=== PATIENT | female | born 1985 | race Caucasian/White ===

== ENCOUNTER 2016-08-08 19:46 | Emergency (ER) | payer OTHER ==
[~2016-08-08] VITALS: Ht 167.6 cm; Wt 166.5 kg
[~2016-08-08 19:46] MED LIST: ALPR1TAB2; CEPH-443 PO; CIPR500T4 PO; CYCL-319 PO; HYDR-3498 PO; HYDR-906 PO; IBUP800T25 PO; NITR-58 PO; ONDA4TAB8 PO; ZOLP10TA
[2016-08-08 19:49] VITALS: Ht 167.6 cm; Wt 166.5 kg
[2016-08-08] MEDS ORDERED: IBUP-1542 PO (20:08)
[2016-08-08] MEDS ORDERED: SSD1C20 TOP (20:08)
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
== END 2016-08-08 20:14 | disposition home or self-care (01) ==
LOC: E/R 19:46
DX: T21.22XA Burn of second degree of abdominal wall, initial encounter (principal); X11.8XXA Contact with other hot tap-water, initial encounter; Y92.9 Unspecified place or not applicable
CPT/HCPCS: 99283

== ENCOUNTER 2017-05-24 22:23 | Emergency (ER) | END 2017-05-25 04:03 | disposition home or self-care (01) ==

== ENCOUNTER 2017-07-04 07:59 | Emergency (ER) | END 2017-07-04 11:10 | disposition home or self-care (01) ==

== ENCOUNTER 2017-07-08 00:08 | Emergency (ER) | END 2017-07-08 05:58 | disposition home or self-care (01) ==

== ENCOUNTER 2017-11-07 02:44 | Emergency (ER) | END 2017-11-07 04:17 | disposition home or self-care (01) ==

== ENCOUNTER 2018-06-29 19:45 | Emergency (ER) | payer OTHER ==
[~2018-06-29] VITALS: Ht 175.3 cm; Wt 156.5 kg
[~2018-06-29 19:45] MED LIST changes: +ALBU8.5H8 INH; +ALPR1TAB2 PO; +AMOX500C2 PO; +AZIT250T PO; +BENZ-6 PO; +CETI10CA PO; -CYCL-319 PO; +CYCL10TA7 PO; +FIORICET PO; +GUAI473L22 PO; +HYDR-4011 PO; -HYDR-906 PO; +IBUP-1542 PO; -IBUP800T25 PO; +IBUP800T48 PO; +MAG-19 PO; +METO10TA92 PO; +ONDA4TAB14 PO; +RANI150T35 PO; +SSD1C20 TOP
[2018-06-29 20:08] VITALS: BP 116/65; PULSE 103; RESP 20; Ht 175.3 cm; Wt 156.5 kg
[2018-06-29] MEDS ORDERED: FLUT9.9S NASAL (22:55)
[2018-06-29] MEDS ORDERED: LORA-186 PO (22:55)
[2018-06-29] MEDS ORDERED: HYDR25CA PO (22:55)
--- NOTE | 2018-06-29 22:58 | ERD ---
ER Documentation Chief Complaint Chief Complaint fever/chills/cough/CWP/back pain/vomiting x6 days HPI This is a 33-year-old female patient presents emergency room with cough that was worsened at night. States her unproductive cough has worsened over the last 6 days, subjective fevers, no nausea vomiting or abdominal pain. No dysuria. no wheezing, no shortness of breath, no chest pain. + Itchy watery eyes. Patient is a non-smoker. Patient also states she has PTSD and has been experiencing more anxiety lately. Patient is not suicidal. ROS All systems reviewed and are negative except as per history of present illness. Medications Home Meds Active Scripts Hydroxyzine Pamoate* (Vistaril*) 25 Mg Capsule, 25 MG PO BID PRN for ANXIETY for 14 Days, #20 CAP Prov:CLARI CANO NP 06/29/18 Loratadine* (Claritin*) 10 Mg Tablet, 10 MG PO DAILY for 30 Days, #30 TAB Prov:CLARI CANO NP 06/29/18 Fluticasone Propionate (Flonase Allergy Relief) 9.9 Ml [place].susp, 1 SPRAY NASAL BID, #1 BOTTLE TO EACH NOSTRIL Prov:CLARI CANO NP 06/29/18 Ibuprofen* (Ibuprofen*) 600 Mg Tablet, 600 MG PO Q6H PRN for PAIN, #30 TAB Prov:TABITHA RAMIREZ DO 01/27/18 Amoxicillin* (Amoxicillin*) 500 Mg Cap, 500 MG PO TID for 10 Days, CAP Prov:CIELO DUPREE NP 11/07/17 Ibuprofen* (Motrin*) 600 Mg Tab, 600 MG PO Q6H PRN for PAIN AND OR ELEVATED TEMP, #30 TAB Prov:CIELO DUPREE NP 11/07/17 Cetirizine Hcl* (Zyrtec*) 10 Mg Capsule, 10 MG PO DAILY, #30 TAB.CHEW Prov:CIELO DUPREE NP 11/07/17 Benzonatate* (Tessalon Perle*) 100 Mg Capsule, 100 MG PO Q8H PRN for COUGH, #20 CAP Prov:CIELO DUPREE NP 11/07/17 Alprazolam* (Xanax*) 1 Mg Tab, 1 MG PO Q8H PRN for ANXIETY, #5 TAB Prov:CIELO DUPREE NP 11/07/17 Ciprofloxacin Hcl* (Ciprofloxacin Hcl*) 500 Mg Tablet, 500 MG PO BID for 7 Days, TAB Prov:CIELO DUPREE NP 07/08/17 Metoclopramide* (Reglan*) 10 Mg Tablet, 10 MG PO Q6 PRN for NAUSEA AND/OR VOMITING, #10 TAB Prov:CIELO DUPREE NP 07/08/17 Ranitidine Hcl* (Zantac*) 150 Mg Tablet, 150 MG PO BID PRN for EPIGASTRIC PAIN, #30 TAB Prov:CIELO DUPREE NP 07/08/17 Magaldrate/Simethicone* (Mylanta*) 355 Ml Susp, 30 ML PO QID PRN for GASTROINTESTINAL UPSET, #1 BOTTLE Prov:CIELO DUPREE NP 07/08/17 Ondansetron (Ondansetron Odt) 4 Mg Tab.rapdis, 4 MG PO Q6H PRN for NAUSEA AND/OR VOMITING, #10 TAB Prov:DARYN CONNELL PA-C 07/04/17 Cephalexin* (Keflex*) 500 Mg Capsule, 500 MG PO QID for 7 Days, CAP Prov:DARYN CONNELL PA-C 07/04/17 Acetamin/Butalbital/Caffeine* (Fioricet*) [id number] Tab, 1 TAB PO Q6H PRN for PAIN, #30 TAB Prov:DARYN CONNELL PA-C 07/04/17 Albuterol Sulfate* (Proair HFA*) 8.5 Gm Hfa.aer.ad, 2 PUFF INH Q4H PRN for WHEEZING AND SOB, #1 INHALER Prov:CIELO DUPREE NP 05/25/17 Ibuprofen* (Motrin*) 600 Mg Tab, 600 MG PO Q6H PRN for PAIN AND OR ELEVATED TE MP, #30 TAB Prov:CIELO DUPREE NP 05/25/17 Cetirizine Hcl* (Zyrtec*) 10 Mg Capsule, 10 MG PO DAILY, #30 TAB.CHEW Prov:CIELO DUPREE NP 05/25/17 Guaifenesin-Codeine Phosphate* (Guaifenesin* AC Cough Syrup) 473 Ml Liquid, 10 ML PO Q4H PRN for COUGH, #120 ML Prov:CIELO DUPREE NP 05/25/17 Azithromycin* (Zithromax*) 250 Mg Tablet, 250 MG PO .ZPACK DIRECTED, #6 TAB TAKE 500 MG (2 TABS) THE FIRST DAY THEN 250 MG (1 TAB) DAYS 2-5 Prov:CIELO DUPREE NP 05/25/17 Ibuprofen* (Motrin*) 600 Mg Tab, 600 MG PO Q6H PRN for PAIN AND OR ELEVATED TEMP, #30 TAB Prov:CIELO DUPREE NP 08/08/16 Silver Sulfadiazine (THERMAZENE 1% 25 GM) 1 Applic Cr, 1 APPLIC TOP BID, #1 TUB Prov:CIELO DUPREE NP 08/08/16 Ondansetron Hcl* (Zofran*) 4 Mg Tablet, 4 MG PO Q6H for NAUSEA AND/OR VOMITING, #30 TAB Prov:MANN VALDEZ PA-C 02/03/16 Hydrocodone/Acetaminophen ([place] 5-325 Tablet) 1 Each Tablet, 1 TAB PO Q6H PRN for PAIN, #5 TAB Prov:MANN VALDEZ PA-C 02/03/16 Ciprofloxacin Hcl* (Ciprofloxacin Hcl*) 500 Mg Tablet, 500 MG PO BID for 3 Days, TAB Prov:MANN VALDEZ PA-C 02/03/16 Hydrocodone Bit-Acetaminophen* ([place]*) 5-325 Mg Tab, 1 TAB PO Q6 PRN for PAIN, #20 TAB Prov:CIELO DUPREE NP 10/28/14 Cephalexin* (Keflex*) 500 Mg Capsule, 500 MG PO QID for 7 Days, CAP Prov:CIELO DUPREE NP 10/28/14 Cyclobenzaprine Hcl* (Cyclobenzaprine Hcl*) 10 Mg Tablet, 5 MG PO TID, #20 TAB Prov:CIELO DUPREE NP 10/28/14 Ibuprofen* (Motrin*) 800 Mg Tab, 800 MG PO Q6H PRN for PAIN AND OR ELEVATED TEMP, #30 TAB Prov:THOMAS MOHAMUD. MASONRY INSPECTOR 10/24/14 Nitrofurantoin Monohyd Macrocr* (Macrobid*) 100 Mg Capsr, 100 MG PO BID for 7 Days, CAP Prov:THOMAS MOHAMUD. MASONRY INSPECTOR 10/24/14 Reported Medications Alprazolam* (Xanax*) 1 Mg Tab, PRN 03/31/13 Zolpidem Tartrate* (Ambien*) 10 Mg Tablet, QHS 03/31/13 [None] No Conflict Check 08/17/10 Allergies Allergies: Coded Allergies: moxifloxacin (Verified Adverse Reaction, Mild, 01/27/18) PMhx/Soc History of Surgery: Yes (cholecystectomy, tubal ligation) Anesthesia Reaction: No Hx Neurological Disorder: No Hx Respiratory Disorders: No Hx Cardiac Disorders: No Hx Psychiatric Problems: Yes (bipolar) Hx Miscellaneous Medical Probl: Yes (anxiety depression) Hx Alcohol Use: No Hx Substance Use: No Hx Tobacco Use: No Smoking Status: Never smoker FmHx Family History: No diabetes, No coronary disease, No other Physical Exam Vitals Vital Signs Date Temp Pulse Resp B/P (MAP) Pulse Ox O2 O2 Flow FiO2 Time Delivery Rate 06/29/18 99.7 103 20 116/65 98 20:08 (82) Physical Exam Const: No acute distress Head: Atraumatic Eyes: Normal Conjunctiva ENT: Normal External Ears, Nose and Mouth. Pharynx pink, no lesions or exudate. Neck: Full range of motion. No meningismus. No adenopathy no thyromegaly Resp: Clear to auscultation bilaterally no wheezing, no rales, no rhonchi Cardio: Regular rate and rhythm, no murmurs Abd: Soft, non tender, non distended. Normal bowel sounds Skin: No petechiae or rashes Back: No midline or flank tenderness Ext: No cyanosis, or edema Neur: Awake and alert Psych: Normal Mood and Affect Procedures/MDM This is a 33-year-old female patient who presents emergency room with complaint of cough x6 days. DIAGNOSTIC IMAGING: Not indicated PROCEDURES: None. MEDICATIONS GIVEN: None indicated MDM: At the time of discharge, vital signs stable, no respiratory distress. Differential diagnosis include but not limited to: Respiratory infection bacterial/viral/fungal. Influenza, pharyngitis, gastroenteritis, asthma, croup, bronchiolitis, allergies, GERD. Less likely foreign body aspiration, pneumonia . Physical examination and clinical presentation consistent most likely with viral syndrome. During the ED course the patient remained stable. Clinical impression discussed with the patient who agrees with management. The patient is stable to be treated outpatient and will be discharged home. Antibiotics not indicated at this time. f symptoms persist, worsen or new symptoms develop, then patient should return to the ED immediately. Disclaimer: Inadvertent spelling and grammatical errors are likely due to EHR/dictation software use and do not reflect on the overall quality of patient care. Also, please note that the electronic time recorded on this note does not necessarily reflect the actual time of the patient encounter. DISPOSITION: The patient has been discharge home to follow-up with community physician. Departure Diagnosis: Primary Impression: Allergic rhinitis Additional Impression: Cough Condition: Stable Patient Instructions: Cough, Chronic, Uncertain Cause, (Adult), Allergic Rhinitis Additional Instructions: Thank you very much for allowing us to participate in your care. Your health and safety is our top priority at [facility]. Call your primary care doctor TOMORROW for an appointment during the next 2-4 days and bring all the information and medications prescribed. Have prescriptions filled and follow precisely the directions on the label. If the symptoms get worse and your provider is unavailable, return to the Emergency Department immediately. Take Vistaril at night to help with sleep. Do not take while operating the ve hicle, do not take with alcohol. This medication may make you drowsy. Take Flonase 1 spray each nostril twice a day, take Claritin daily. Increase hydration to 1 to 2 L/day. CLARI CANO NP June 29, 2018 22:58
== END 2018-06-29 23:01 | disposition home or self-care (01) ==
LOC: FTE 19:45
DX: J30.9 Allergic rhinitis, unspecified (principal)
CPT/HCPCS: 99283

== ENCOUNTER 2018-08-18 10:57 | Emergency (ER) | payer MEDICAID, OTHER ==
[~2018-08-18] VITALS: Ht 167.6 cm; Wt 120.0 kg
[2018-08-18 10:57] VITALS: Ht 167.6 cm; Wt 120.0 kg
[~2018-08-18 10:57] MED LIST changes: +FLUT9.9S NASAL; +HYDR25CA PO; +LORA-186 PO
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
--- NOTE | 2018-08-18 13:52 | PSY ---
Date/Time of Note Date/Time of Note DATE: 08/18/18 TIME: 15:42 Psychiatric Subjective Eval Consent Pt consented to telemedicine: Yes Subjective Evaluation Patient location: emergency Chief Complaint: BIB . INTENTIONAL OD ON XANAX APPROX 70-80 1 MG TABS History of present illness HPI: 33 yo female with ho anxiety and depression, reports that her PTSD was triggered so she took a bottle of xanax. Reports she "cannot control" her PTSD and does not have outpatient treatment. Says she is "not sure" whether or not she was trying to kill herself. pt denies being on medication or seeing a therapist. Denies drug use or psychosis Past psych Hx: denies ho psych admits or suicide attempts PMHx: denies Meds: denies Allergies: moxifloxacin MSE: casually groomed, somewhat uncooperatie, dysthymic, restricted affect, decreased prosody of speech, denies avh or delusions or si/hi, impaired insight/reliability Imp: 33 yo female s/p intentional and severe overdose voluntary psych admit benzodiazepine w/d precautions with bridget d/w attending Medical history Problems Medical Problems: (1) Acute bacterial pharyngitis Status: Acute (2) Acute bronchitis Status: Acute (3) Acute bronchitis Status: Acute (4) Allergic rhinitis Status: Acute (5) Back pain Status: Acute (6) Cough Status: Acute (7) Dependent edema Status: Acute (8) GERD (gastroesophageal reflux disease) Status: Acute (9) Headache Status: Acute (10) Intentional drug overdose Status: Acute (11) Medication refill Status: Acute (12) Ovarian cyst Status: Acute (13) Second degree burn Status: Acute (14) Suprapubic pain Status: Acute (15) UTI (urinary tract infection) Status: Acute (16) Vomiting Status: Acute Allergies: Coded Allergies: moxifloxacin (Verified Adverse Reaction, Mild, 08/18/18) Psychiatric Objective Eval Mental Status Examination: Laboratory Results Laboratory Tests Test 08/18/18 11:20 08/18/18 11:21 Urine Color COLORLESS Urine Clarity CLEAR Urine pH 6.0 Urine Specific [place] 1.001 Urine Ketones NEGATIVE mg/dL Urine Nitrite NEGATIVE mg/dL Urine Bilirubin NEGATIVE mg/dL Urine Urobilinogen NEGATIVE mg/dL Urine Leukocyte Esterase NEGATIVE Dex/ul Urine Microscopic RBC 0 /HPF Urine Microscopic WBC 0 /HPF Urine Bacteria FEW /HPF Urine Hemoglobin 1+ mg/dL Urine Glucose NEGATIVE mg/dL Urine Total Protein NEGATIVE mg/dl Urine Opiates Screen Negative Urine Barbiturates Negative Urine Amphetamines Screen Positive Urine Benzodiazepines Screen Positive Urine Cocaine Screen Negative Urine Cannabinoids Negative White Blood Count 10.7 10^3/ul Red Blood Count 4.56 10^6/ul Hemoglobin 12.8 g/dl Hematocrit 39.1 % Mean Corpuscular Volume 85.7 fl Mean Corpuscular Hemoglobin 28.1 pg Mean Corpuscular Hemoglobin Concent 32.7 g/dl Red Cell Distribution Width 14.1 % Platelet Count 241 10^3/UL Mean Platelet Volume 10.5 fl Immature Granulocytes % 0.400 % Neutrophils % 66.9 % Lymphocytes % 24.8 % Monocytes % 5.8 % Eosinophils % 1.9 % Basophils % 0.2 % Nucleated Red Blood Cells % 0.0 /100WBC Immature Granulocytes # 0.040 10^3/ul Neutrophils # 7.2 10^3/ul Lymphocytes # 2.7 10^3/ul Monocytes # 0.6 10^3/ul Eosinophils # 0.2 10^3/ul Basophils # 0.0 10^3/ul Nucleated Red Blood Cells # 0.0 10^3/ul Sodium Level 142 mmol/L Potassium Level 3.7 mmol/L Chloride Level 109 mmol/L Carbon Dioxide Level 23 mmol/L Anion Gap 10 Blood Urea Nitrogen 11 mg/dl Creatinine 0.54 mg/dl Est Glomerular Filtrat Rate mL/min > 60 mL/min Glucose Level 109 mg/dl Calcium Level 8.5 mg/dl Total Bilirubin 0.4 mg/dl Direct Bilirubin 0.00 mg/dl Indirect Bilirubin 0.4 mg/dl Aspartate Amino Transf (AST/SGOT) 20 IU/L Alanine Aminotransferase (ALT/SGPT) 19 IU/L Alkaline Phosphatase 91 IU/L Total Protein 7.2 g/dl Albumin 3.7 g/dl Globulin 3.50 g/dl Albumin/Globulin Ratio 1.05 Salicylates Level < 1.0 mg/dl Acetaminophen Level < 10.0 ug/ml Ethyl Alcohol Level < 10.0 mg/dl Assessment and Plan Recommendation/Plan Multiple antipsychotics: No Discharge Disposition: Psychiatric inpatient Legal Status: Voluntary SRIRAM RIBEIRO Aug 18, 2018 13:52
[2018-08-18] MEDS ORDERED: DIPHENHYDRAMINE 50 MG INJ ONE (20:40)
[2018-08-18] MEDS ORDERED: DIPHENHYDRAMINE 50 MG INJ IV ONE (21:00)
--- NOTE | 2018-08-18 23:40 | PSY ---
Date/Time of Note Date/Time of Note DATE: 08/18/18 TIME: 23:24 Psychiatric Subjective Eval Consent Pt consented to telemedicine: Yes Subjective Evaluation Patient location: emergency Chief Complaint: BIB . INTENTIONAL OD ON XANAX APPROX 70-80 1 MG TABS Reason for consult: Patient seen earlier and recommended for voluntary admit by Dr. Teran History of present illness Per chart the patient overdosed on a large number of Xanax and was recommended for inpatient admission by Dr. Teran. She was apparently accepted at a psychiatric hospital. She then said she wanted to go home. She told me she just "had a moment." She said she had "no reason honestly" for taking all the Xanax. She stated she had some medication changes recently including a medication that was stopped "cold turkey" which. Later she said she had a "really big trigger" which caused her to take the Xanax. She stated she has felt "really out of control" lately. I explained that the large number of Xanax could have been deadly, and she said, "I know." Past psychiatric history Diagnosed with PTSD. Stated she was taking Ambien and Xanax and something else she doesn't remember. Hospitalization: no Family History She always thought there was some mental health issues on her mom's side. Medical history Problems Medical Problems: (1) Acute bacterial pharyngitis Status: Acute (2) Acute bronchitis Status: Acute (3) Acute bronchitis Status: Acute (4) Allergic rhinitis Status: Acute (5) Back pain Status: Acute (6) Cough Status: Acute (7) Dependent edema Status: Acute (8) GERD (gastroesophageal reflux disease) Status: Acute (9) Headache Status: Acute (10) Intentional drug overdose Status: Acute (11) Medication refill Status: Acute (12) Ovarian cyst Status: Acute (13) Second degree burn Status: Acute (14) Suprapubic pain Status: Acute (15) UTI (urinary tract infection) Status: Acute (16) Vomiting Status: Acute Allergies: Coded Allergies: moxifloxacin (Verified Adverse Reaction, Mild, 08/18/18) Substance Abuse Substance use: No known substance abuse Substance abuse history: No Prior substance abuse treatmen: No Social History Marital status: DPA/Conservatorship: No Psychiatric Objective Eval Mental Status Examination: Appearance: Groomed Eye Contact: Fair Psychomotor Activity: Normal Behavior: Guarded Speech: Dysarthric AFFECT: Constricted Mood: Anxious Though Process: Circumstantial Thought Content: Normal Suicidal: No Homicidal: No On 72 hour hold: No Orientation: x3 Cognition: Drowsy Insight: Impared Judgement: Impared Attention Span: Intact Laboratory Results Laboratory Tests Test 08/18/18 11:20 08/18/18 11:21 08/18/18 16:08 Urine Color COLORLESS Urine Clarity CLEAR Urine pH 6.0 Urine Specific [place] 1.001 Urine Ketones NEGATIVE mg/dL Urine Nitrite NEGATIVE mg/dL Urine Bilirubin NEGATIVE mg/dL Urine Urobilinogen NEGATIVE mg/dL Urine Leukocyte Esterase NEGATIVE Dex/ul Urine Microscopic RBC 0 /HPF Urine Microscopic WBC 0 /HPF Urine Bacteria FEW /HPF Urine Hemoglobin 1+ mg/dL Urine Glucose NEGATIVE mg/dL Urine Total Protein NEGATIVE mg/dl Urine Opiates Screen Negative Urine Barbiturates Negative Urine Amphetamines Screen Positive Urine Benzodiazepines Screen Positive Urine Cocaine Screen Negative Urine Cannabinoids Negative White Blood Count 10.7 10^3/ul Red Blood Count 4.56 10^6/ul Hemoglobin 12.8 g/dl Hematocrit 39.1 % Mean Corpuscular Volume 85.7 fl Mean Corpuscular Hemoglobin 28.1 pg Mean Corpuscular 32.7 g/dl Hemoglobin Concent Red Cell Distribution Width 14.1 % Platelet Count 241 10^3/UL Mean Platelet Volume 10.5 fl Immature Granulocytes % 0.400 % Neutrophils % 66.9 % Lymphocytes % 24.8 % Monocytes % 5.8 % Eosinophils % 1.9 % Basophils % 0.2 % Nucleated Red Blood Cells % 0.0 /100WBC Immature Granulocytes # 0.040 10^3/ul Neutrophils # 7.2 10^3/ul Lymphocytes # 2.7 10^3/ul Monocytes # 0.6 10^3/ul Eosinophils # 0.2 10^3/ul Basophils # 0.0 10^3/ul Nucleated Red Blood Cells # 0.0 10^3/ul Sodium Level 142 mmol/L Potassium Level 3.7 mmol/L Chloride Level 109 mmol/L Carbon Dioxide Level 23 mmol/L Anion Gap 10 Blood Urea Nitrogen 11 mg/dl Creatinine 0.54 mg/dl Est Glomerular Filtrat > 60 mL/min Rate mL/min Glucose Level 109 mg/dl Calcium Level 8.5 mg/dl Total Bilirubin 0.4 mg/dl Direct Bilirubin 0.00 mg/dl Indirect Bilirubin 0.4 mg/dl Aspartate Amino Transf (AST/SGOT) 20 IU/L Alanine 19 IU/L Aminotransferase (ALT/SGPT) Alkaline Phosphatase 91 IU/L Total Protein 7.2 g/dl Albumin 3.7 g/dl Globulin 3.50 g/dl Albumin/Globulin Ratio 1.05 Salicylates Level < 1.0 mg/dl Acetaminophen Level < 10.0 ug/ml Ethyl Alcohol Level < 10.0 mg/dl POC Beta HCG, Qualitative NEGATIVE Assessment and Plan Assessment/Diagnosis Diagnosis PTSD Recommendation/Plan Multiple antipsychotics: No Pt. Caregiver/Family Education Explained rationale for admission Discharge Disposition: Psychiatric inpatient Legal Status: Place involuntary hold Other Although she denied suicidal thoughts currently she cannot give a rational e xplanation for taking such a large amount of Xanax which could have caused serious medical complications or . This suggests she does meet criteria for a 5150 DTS hold which is recommended. GERONIMO HAYWARD MD Aug 18, 2018 23:35
--- NOTE | 2018-08-19 11:43 | EN ---
Date/Time of Note Date/Time of Note DATE: 08/19/18 TIME: 11:42 ER Progress Note No acute events overnight. Patient remains suicidal and high risk from a psychiatric standpoint. She has not been agitated and has no medical complaints. Physical exam: Vital signs appreciated Psychiatrically essentially unchanged. She is awake alert oriented expressing suicidal ideation having just overdose. Assessment: Patient has been evaluated by the psychiatric evaluation team and placed on a 5150 Plan: Patient remains medically clear and pending placement for psychiatric bed. HAZEL LAGUNA Aug 19, 2018 11:43
[2018-08-19] MEDS ORDERED: DIPHENHYDRAMINE 25 MG CAP PO ONE (22:30)
[2018-08-20 03:29] VITALS: BP 128/74; PULSE 76; RESP 18
== END 2018-08-20 03:36 ==
LOC: E/R 10:57
DX: T42.4X2A Poisoning by benzodiazepines, intentional self-harm, initial encounter (principal)
CPT/HCPCS: 36415; 80053; 80307; 81001; 81025; 85025; J1200; Z7502; Z7610

== ENCOUNTER 2018-09-01 18:54 | Emergency (ER) | payer MEDICAID ==
[~2018-09-01] VITALS: Ht 175.3 cm; Wt 153.4 kg
[2018-09-01 19:06] VITALS: Ht 175.3 cm; Wt 153.4 kg
[2018-09-01] MEDS ORDERED: LORAZEPAM 1 MG TAB PO ONE (20:00)
[2018-09-01] MEDS ORDERED: ACETAMINOPHEN 325 MG TAB PO ONE (20:00)
[2018-09-01] MEDS ORDERED: IBUP-1542 PO (21:21)
[2018-09-01] MEDS ORDERED: CYCL10TA7 PO (21:21)
[2018-09-01] MEDS ORDERED: LORA1TAB PO (21:21)
--- NOTE | 2018-09-01 21:24 | ERD ---
ER Documentation Chief Complaint Chief Complaint Pt reports L arm numbness since 0100 this morning HPI 33-year-old female presents with left arm pain and numbness since earlier this morning when trying to sleep. Radiates from her left neck. She denies any weakness. She complains of mild headache double vision as well although he has a history of anxiety and believes her anxiety has been worse with the left arm pain. She denies any chest pain, shortness of breath, fevers. She denies any previous neck injury. ROS All systems reviewed and are negative except as per history of present illness. Medications Home Meds Active Scripts Cyclobenzaprine Hcl* (Cyclobenzaprine Hcl*) 10 Mg Tablet, 10 MG PO TID, #20 TAB Prov:TRUDY POSADA MD 09/01/18 Ibuprofen* (Motrin*) 600 Mg Tab, 600 MG PO Q6, #20 TAB Prov:TRUDY POSADA MD 09/01/18 Lorazepam* (Lorazepam*) 1 Mg Tablet, 1 MG PO Q6 PRN for ANXIETY, #12 TAB Prov:TRUDY POSADA MD 09/01/18 Allergies Allergies: Coded Allergies: moxifloxacin (Verified Adverse Reaction, Mild, 08/18/18) PMhx/Soc Medical and Surgical Hx: pt denies Medical Hx History of Surgery: Yes (tubal ligation, cholecystectomy) Anesthesia Reaction: No Hx Neurological Disorder: No Hx Respiratory Disorders: No Hx Cardiac Disorders: No Hx Psychiatric Problems: Yes (bipolar, PTSD) Hx Miscellaneous Medical Probl: Yes (anxiety depression) Hx Alcohol Use: No Hx Substance Use: No Hx Tobacco Use: No Smoking Status: Never smoker FmHx Family History: No diabetes, No coronary disease, No other Physical Exam Vitals Vital Signs Date Temp Pulse Resp B/P (MAP) Pulse Ox O2 O2 Flow FiO2 Time Delivery Rate 09/01/18 99.4 114 24 120/65 99 19:06 (83) Physical Exam Const: No acute distress Head: Atraumatic Eyes: Normal Conjunctiva ENT: Normal External Ears, Nose and Mouth. Neck: Full range of motion. No meningismus. Tenderness in cervical paraspinous area. No deficits. No midline tenderness or deformities. Resp: Clear to auscultation bilaterally Cardio: Regular rate and rhythm, no murmurs Abd: Soft, non tender, non distended. Normal bowel sounds Skin: No petechiae or rashes Back: No midline or flank tenderness Ext: No cyanosis, or edema Neur: Awake and alert Psych: Normal Mood and Affect Results 24 hrs Current Medications Medications Dose Sig/Miguel Start Time Status Last (Trade) Ordered Route PRN Stop Time Admin Dose Reason Admin Lorazepam 1 mg ONCE ONCE 09/01/18 DC 09/01/18 (Ativan) PO 20:00 19:55 09/01/18 20:01 650 mg ONCE ONCE 09/01/18 DC 09/01/18 Acetaminophen PO 20:00 19:57 (Tylenol 09/01/18 20:01 Tab) Procedures/MDM EKG: Rate/Rhythm: Normal Sinus Rhythm rate equals 78 QRS, ST, T-waves: No changes consistent w/ acute ischemia Impression: No evidence of ischemia or arrhythmia CT brain and cervical spine show no acute abnormalities. Patient was given ibuprofen and Ativan 1 mg by mouth for noticeable signs or symptoms of anxiety. Patient denies homicidal or suicidal ideation. Patient presents with left arm numbness since early this morning. Signs are consistent with cervical radicular symptoms. She has no signs or symptoms of cardiac chest pain, shortness of breath, neurologic deficits, additional concerning signs or symptoms. She will be treated with a short course of Ativan, ibuprofen, Flexeril, recommendations for primary care follow-up and return precautions. The patient was stable with no new complaints during the ER course. Clinically, there is no current evidence to suggest meningitis, sepsis, acute abdomen, pneumonia, stroke, acute coronary syndrome, pulmonary embolism, aortic dissection or any other emergent condition appearing to require further evaluation or hospitalization. Patient counseled regarding my diagnostic impression and care plan. Prior to discharge all questions answered. Pt agrees with treatment plan and understands strict return precautions. Pt is instructed to follow up with primary care provider within 24- 48 hours. Precautionary instructions provided including instructions to return to the ER if not improving or for any worsening or changing symptoms or concerns. Disclaimer: Inadvertent spelling and grammatical errors are likely due to EHR/dictation software use and do not reflect on the overall quality of patient care. Also, please note that the electronic time recorded on this note does not necessarily reflect the actual time of the patient encounter. Departure Diagnosis: Primary Impression: Radicular pain Additional Impression: Numbness Condition: Stable Patient Instructions: Radiculopathy, Cervical Additional Instructions: No significant abnormalities noted on studies today. Likely pinched nerve in the neck. See primary doctor for follow-up. May need orthopedic or specialist evaluation. Recheck for new or worsening symptoms with primary care doctor as directed. TRUDY POSADA MD Sep 01, 2018 21:24
[2018-09-01 21:43] VITALS: BP 116/67; PULSE 79; RESP 17
== END 2018-09-01 21:43 | disposition home or self-care (01) ==
LOC: FTE 18:54
DX: R20.0 Anesthesia of skin (principal); M54.10 Radiculopathy, site unspecified
CPT/HCPCS: 70450; 72125; 93005; Z7502; Z7610